=== PATIENT | male | born 1955 | race Caucasian/White ===

== ENCOUNTER 2023-12-17 11:07 | Emergency (ER) | payer MEDICARE, SELFPAY ==
--- NOTE | 2023-12-17 11:33 | ED.URI ---
HPI - URI/Sore Throat General Chief Complaint: Upper Respiratory Infection Stated Complaint: flu-like symptoms Time Seen by Provider: 12/17/23 11:33 Source: patient and RN notes reviewed Mode of arrival: ambulatory Limitations: no limitations History of Present Illness HPI Narrative: 68-year-old male presents with concern for 6 day history of cough, chest congestion, sinus congestion, headache, pain behind his eyes, body aches, shortness of breath. He reports he has been taking Tylenol. He reports history of heavy smoking. He reports cold air makes him feel short of breath MD elicited complaint: cough Related Data Allergies Allergy/AdvReac Type Severity Reaction Status Date / Time No Known Allergies Allergy Verified 12/17/23 13:23 Review of Systems Review of Systems: CONSTITUTIONAL: Reports malaise, chills, sweats EYES: Denies visual changes, redness, or discharge. ENT: Reports rhinorrhea, congestion, sinus pain. Denies otalgia and sore throat. CARDIOVASCULAR: Denies chest pain, palpitations, or edema. RESPIRATORY: Reports cough, chest congestion, dyspnea. GASTROINTESTINAL: Denies abdominal pain, nausea, vomiting, diarrhea SKIN: Denies rash or itching. MUSCULOSKELETAL: Reports myalgia. NEUROLOGIC: Reports headache. All systems reviewed & are unremarkable except as noted in HPI and below PMFSH Comments At time of signature, agree with nursing past medical, surgical, social and family history. There is no relevant family history pertinent to the presenting complaint Exam Narrative: GENERAL: Nontoxic-appearing, well-nourished, and in no acute distress. HEAD: Normocephalic EYES: PERRLA, conjunctivae clear ENT: Nares clear. Mucous membranes moist. TM pearly villanueva with dull light reflex bilaterally; no tragal tenderness. Oropharynx not erythematous without lesions. Tonsils not enlarged and without exudate, no drooling, no hoarseness, no trismus, uvula midline. NECK: Supple. No lymphadenopathy CHEST: Scattered rhonchi, otherwise clear to auscultation, breath sounds equal. No wheezing, rales, or stridor. No respiratory distress, speaks in full sentences. HEART: Regular rate and rhythm. No murmur heard. SKIN: Warm, dry, no rash. NEURO: Alert and oriented x3. PSYCH: Normal mood and affect Course Course Emergency Course: Patient is aware of diagnosis, understands and agrees to treatment plan. Anticipatory guidance given. Patient agrees to follow-up as directed and is aware of reasons to seek care at the emergency department. Portions of this record may have been created with voice recognition software Level of Care: Express Care Visit Vital Signs Vital signs: Reviewed. MDM - URI/Sore Throat MDM Narrative Medical decision making narrative: Differential diagnosis considered: Bryan virus, strep pharyngitis, allergic rhinitis, upper respiratory tract infection, sinusitis, rhinosinusitis, nasopharyngitis. viral pharyngitis, otitis media, otitis externa, pneumonia, bronchitis, viral cough syndrome, viral syndrome, and influenza. Exam findings show no acute concerns or changes; patient is non-toxic appearing and is in no distress. Patient is appropriate for outpatient treatment and follow-up. Lab Data Attestation: I reviewed the patient's lab results. Critical Care Time Critical Care Time Critical Care Time: No Discharge Plan Discharge Clinical Impression: Upper respiratory infection with cough and congestion Patient Disposition: Home, Self-Care Condition: Stable Instructions: Antibiotic Form, Acute Cough (ED) Additional Instructions: Your COVID and flu tests are negative Take medication as prescribed Recommend antihistamine such as Benadryl at night time and Zyrtec or Danette during the day Use inhaler as needed for cough, wheezing, shortness of breath or chest tightness. Also, recommend symptomatic treatment includes: rest, fluids, and increase humidity of the air at home. Recommend Acetamin
[2023-12-17 12:58] VITALS: BP 153/88; PULSE 84; RESP 18; TEMP 37.2; O2SAT 93
== END 2023-12-17 13:33 | disposition home or self-care (01) ==
PROVIDERS: Emergency Provider Nurse Practitioner; PCP Nurse Practitioner Family
DX: J06.9 Acute upper respiratory infection, unspecified (principal); R05.9 Cough, unspecified
CPT/HCPCS: 87426; 87804; 99213; G0463

== ENCOUNTER 2023-12-20 15:47 | Inpatient (IN) | payer MEDICARE, SELFPAY ==
[2023-12-20] VITALS (10 sets, daily range): BP systolic 134–168; BP diastolic 66–80; PULSE 58–96; RESP 14–20; TEMP 36.6–38.4; O2SAT 87–94; BMI 21.4
--- NOTE | ~2023-12-20 | XR_ITS ---
EXAMINATION: XR chest 2V DATE: 12/20/2023 16:15 INDICATION: Shortness of breath, cough and fever TECHNIQUE: frontal and lateral views of the chest were obtained. COMPARISON: None FINDINGS: There are interstitial and patchy airspace opacities in the bilateral mid and lower lung zones. Tiny bilateral pleural effusions. No pneumothorax. The cardiomediastinal silhouette is normal. Mild thorac ic spondylosis. IMPRESSION: 1. Opacities in bilateral mid and lower lung zones and favor pneumonia over atelectasis or pulmonary edema. Reviewed, dictated and finalized at location A. HIC DESIGN TEACHER IMPRESSION: 1. Opacities in bilateral mid and lower lung zones and favor pneumonia over ate lectasis or pulmonary edema.
--- NOTE | ~2023-12-20 | US_ITS ---
EXAMINATION: US abdomen limited DATE: 12/23/2023 17:04 INDICATION: elevated liver enzymes TECHNIQUE: Multiple grayscale and Doppler ultrasound images of limited portions of the abdomen were o btained. COMPARISON: [facility] 12/20/2023. FINDINGS: The visualized portions of the pancreas are normal. The liver is normal with normal echogen icity and echotexture. Liver surface nodularity. Normal hepatopetal flow in the main portal vein. The gallbladder is partially collapsed which limits evaluation. Borderline gallbladder wall thickening. The common bile duct measures 2 mm. There was no sonographic Werner sign. The right kidney measures 1 0.5 x 6.0 x 7.4. 3.9 cm simple upper pole cyst. No hydronephrosis IMPRESSION: Nodular liver border as can be seen with cirrhosis. Incompletely evaluated, collapsed gallbladder with nonspecific wall thickening. Reviewed, dictated and finalized at location K. [employer]
--- NOTE | ~2023-12-20 | CT_ITS ---
EXAMINATION: CTA chest PE protocol DATE: 12/20/2023 18:21 INDICATION: Dyspnea, fever and chills TECHNIQUE: Computed tomography (CT) pulmonary angiogram of the chest was performed with 100 mL Omnipa que-350 intravenous contrast. Additional 3D reconstructions utilizing coronal maximum intensity proje ction (MIP) were performed. Automated exposure control and iterative reconstruction technique were em ployed. The dose-length product was 241.63 mGy-cm. COMPARISON: None FINDINGS: No pulmonary embolism. There is dependent consolidation in the posterior aspect of the bilateral uppe r lobes along the major fissures. There are diffuse tree-in-bud opacities and some patchy groundglass opacities in the bilateral lower lungs. No pulmonary edema, pleural effusion or pneumothorax. Heart size is normal. Atherosclerotic coronary artery calcifications. No pericardial effusion. Thoracic aor ta is normal in caliber with no dissection. Calcified right hilar and mediastinal lymph nodes along w ith multiple tiny scattered hepatic and splenic calcifications consistent with old granulomatous dise ase. No pathologically enlarged thoracic lymphadenopathy. 4.3 cm cyst at the upper pole of the right kidney. Moderate thoracic and severe lower cervical spondylosis. IMPRESSION: 1. No pulmonary embolism. 2. Bilateral diffuse multifocal pneumonia. Reviewed, dictated and finalized at location A. [employer]
[2023-12-20] MEDS: ACETAMINOPHEN 500 MG TABLET 1000 MG PO (16:16)
[2023-12-20] MEDS: ALBUTEROL SULFATE NEB 2.5 MG/3 ML INH 15 MG INHALATION (16:41)
[2023-12-20] MEDS: predniSONE 20 MG TABLET 40 MG PO (17:08)
[2023-12-20 17:11] LABS: Influenza A QL RT-PCR Positive (Negative); Influenza B QL RT-PCR Negative (Negative); RSV RNA, RT-PCR Negative (Negative); SARS-CoV-2 RNA PCR Negative (Negative)
[2023-12-20 17:21] LABS: Basophils Absolute Auto 0.1 K/mm3 (0.0-0.1); Basophils Percent Auto 0.3 % (0.2-1.2); Hematocrit 43.8 % (42.0-52.0); Hemoglobin 15.1 g/dL (14.0-18.0); Immature Granulocyte Absolute 0.15 K/mm3 (0.00-0.031); Lymphocytes Absolute Auto 1.55 K/mm3 (0.9-3.2); Lymphocytes Percent Auto 9.8 % (18.3-44.2); Mean Corpuscular HGB Conc 34.5 g/dl (32-36); Mean Corpuscular Volume 95.8 fl (80-100); Mean Platelet Volume 9.7 fl (7.4-10.4); Monocytes Absolute Auto 1.3 K/mm3 (0.1-0.6); Neutrophils Absolute Auto 12.7 K/mm3 (1.3-6.7); Neutrophils Percent Auto 80.9 % (45.5-73.1); Platelet Count Result 108 k/mm3 (150-375); Red Blood Count 4.57 M/mm3 (4.6-6.20); Red Cell Distribution Width 14.6 % (11.5-14.5); White Blood Count 15.8 K/mm3 (4.5-10.0)
[2023-12-20 17:32] LABS: INR 1.1; Partial Thromboplastin Time 28.1 SECONDS (22.3-36.8); Prothrombin Time 14.5 Seconds (11.1-14.7)
[2023-12-20 17:38] LABS: Alanine Aminotransferase 46 U/L (6-50); Albumin Level 2.9 g/dL (3.5-5.1); Alkaline Phosphatase 170 U/L (38-126); Anion Gap 2 mmol/L (8-16); Aspartate Amino Transferase 69 U/L (17-59); Bilirubin,Total 1.1 mg/dL (0.2-1.3); Blood Urea Nitrogen 16 mg/dL (9-20); Calcium 8.1 mg/dL (8.4-10.2); Carbon Dioxide 28 mmol/L (22-30); Chloride 98 mmol/L (98-107); Estimated CRCL calculation 68 ml/min; Estimated Glomerular Filt Rate > 60; Glucose 101 mg/dL (65-110); Potassium 4.5 mmol/L (3.4-5.0); Sodium 128 mmol/L (137-145)
[2023-12-20 17:41] LABS: D Dimer 2.53 ug/mL (<0.48)
[2023-12-20 18:01] LABS: Appearance Urine Clear (Clear); Bacteria Urine None Seen /hpf; Bilirubin Urine Negative (Negative); Blood Urine Negative (Negative); Color Urine Yellow (Yellow); Glucose Urine UA Negative (Negative); Ketones Urine Negative (Negative); Leukocyte Esterase Ur Negative LEU/UL (Negative); Nitrate Urine Negative (Negative); Non Pathogenic Casts 0-2; Protein Urine 1+ mg/dL (Negative); RBC Urine 0-2 /hpf (0-2); Squamous Epithelial Cell Urine None seen /hpf (Few); WBC Urine 0-5 /hpf
[2023-12-20 18:04] LABS: Add Urine Microscopic? YES
[2023-12-20 18:06] LABS: Lactic Acid Reflex 1.7 mmol/L (0.7-2.0)
[2023-12-20] MEDS: DOXYCYCLINE HYCLATE 100 MG TABLET PO (18:22)
--- NOTE | 2023-12-20 18:27 | ED.FEVER ---
HPI - Fever General Chief Complaint: Fever Stated Complaint: weakness Time Seen by Provider: 12/20/23 16:02 History of Present Illness HPI Narrative: patient states that 9 days ago he started having URI symptoms, his also had this, however his got better and he got worse. He is having more cough, fevers, difficulty breathing. Related Data Allergies Allergy/AdvReac Type Severity Reaction Status Date / Time No Known Allergies Allergy Verified 12/20/23 15:48 Review of Systems Review of Systems: All systems reviewed & are unremarkable except as noted in HPI and below Exam Narrative: EXAMINATION OF ORGAN SYSTEMS/BODY AREAS: Constitutional: Vital signs per nursing GENERAL:[No acute distress, non-toxic appearing.] HEAD: Normal with no signs of head trauma. EYES: EOMI, conjunctiva normal ENT: Hearing grossly intact LUNGS: Nonlabored breathing. Rales and wheezing bilateral his lungs HEART: [Regular rate and rhythm] ABD: [Soft], [nontender to palpation] EXT: Normal range of motion SKIN: [No rashes or lesions.] NEURO: [Alert and oriented x 3. No gross focal sensory or strength deficits.] PSYCH: Normal affect Course Vital Signs Vital signs: Vital Signs Temperature 101.2 F H 12/20/23 15:54 Pulse Rate 72 12/20/23 15:54 Respiratory Rate 20 12/20/23 15:54 Blood Pressure 162/66 H 12/20/23 15:54 Pulse Oximetry 94 12/20/23 15:54 Oxygen Delivery Room Air 12/20/23 15:54 Temperature 101.2 F H 12/20/23 15:54 Pulse Rate 82 12/20/23 18:43 Respiratory Rate 18 12/20/23 18:43 Blood Pressure 155/75 H 12/20/23 17:51 Pulse Oximetry 91 12/20/23 18:43 Oxygen Delivery Nasal Cannula 12/20/23 17:53 Oxygen Flow Rate 2 12/20/23 17:53 MDM - Fever MDM Narrative Medical decision making narrative: 60-year-old male presenting with URI symptoms have been worsening over the last 9 days, he is febrile here, with crackles and wheezing, he was started on DuoNebs, I suspect possible COPD exacerbation from URI versus possible pneumonia, chest x-ray does show bilateral pneumonia, and labs consistent with likely bacterial infection given leukocytosis, elevated CRP. D-dimer is elevated so I will obtain a CT PE. This shows MFC. I will start broad spectrum abx and admit patient. D/w family/patient regarding plan. D/w hospitalist. He is started on O2 at this time. Lab Data 12/20/23 16:57 12/20/23 16:57 Labs: Lab Results 12/20/23 12/20/23 12/20/23 Range/Units 16:27 16:57 16:57 WBC 15.8 H (4.5-10.0) K/mm3 RBC 4.57 L (4.6-6.20) M/mm3 Hgb 15.1 (14.0-18.0) g/dL Hct 43.8 (42.0-52.0) % MCV 95.8 (80-100) fl MCH 33.0 (26-34) pg MCHC 34.5 (32-36) g/dl RDW 14.6 H (11.5-14.5) % Plt Count 108 L (150-375) k/mm3 MPV 9.7 (7.4-10.4) fl Immature Gran % (Auto) 1.0 H (0-0.5) % Neut % (Auto) 80.9 H (45.5-73.1) % Lymph % (Auto) 9.8 L (18.3-44.2) % [place] % (Auto) 8.0 (2.6-8.5) % Eos % (Auto) 0.0 (0-4.4) % Baso % (Auto) 0.3 (0.2-1.2) % Lymph # (Auto) 1.55 (0.9-3.2) K/mm3 [place] # (Auto) 1.3 H (0.1-0.6) K/mm3 Eos # (Auto) 0.0 (0-0.3) K/mm3 Baso # (Auto) 0.1 (0.0-0.1) K/mm3 Abs Immat Gran (auto) 0.15 H (0.00-0.031) K/mm3 Absolute Neuts (auto) 12.7 H (1.3-6.7) K/mm3 Absolute Nucleated RBC 0.0 (0.0-0.012) K/mm3 Nucleated RBC % 0.0 (0.0-0.2) % PT 14.5 (11.1-14.7) Seconds INR 1.1 APTT 28.1 (22.3-36.8) SECONDS D-Dimer 2.53 H Cancelled (<0.48) ug/mL Sodium 128 L (137-145) mmol/L Potassium 4.5 (3.4-5.0) mmol/L Chloride 98 (98-107) mmol/L Carbon Dioxide 28 (22-30) mmol/L Anion Gap 2 L (8-16) mmol/L BUN 16 (9-20) mg/dL Creatinine 0.80 (0.7-1.3) mg/dL Estim Creat Clear Calc 68 ml/min Estimated GFR > 60 (59 - ) Glucose 101 (65-110) mg/dL Lactic Acid (0.7-2.0) mmol/L Calcium 8.1 L (8.4-10.2)
[2023-12-20] MEDS: VANCOMYCIN 1,500 MG/NS 500 ML 1,500 MG/500 ML BAG 250 MG IVPB (18:52)
[2023-12-20 20:01] LABS: MRSA (PCR) NOT DETECTED (NOT DETECTE)
--- NOTE | 2023-12-20 20:30 | PM.IMHP ---
H&P: HPI History of Present Illness Date/Time: 12/20/23 20:30 Chief Complaint: Fever, chills, weakness Narrative: 68-year-old male with past medical history of chronic tobacco use who presented to the ER for shortness of breath, cough, shortness of breath and chills for the last 16 days. The patient reports the symptoms initially started about 16 8 ago with nausea vomiting and loose stools. His GI symptoms did improve but then he began having chest tightness and cough as well as significant chills. He did not check a temperature at home but had a fever of 101.2 on arrival to the ER. He went to urgent care last week and had viral swab performed which were negative. He was given scripts for azithromycin and albuterol. The albuterol inhaler would help in for a couple of minutes but then his symptoms would return to baseline. He had been taking Tylenol as needed for aches and pains. He did report a severe headache that had been intermittent since onset of symptoms. His headache is now resolved after receiving Tylenol, Rocephin and doxycycline in the ER. He also received 1 dose of prednisone. With 1 time inhaler of albuterol and Atrovent patient reports significant improvement in his chest tightness and shortness of breath. He reports that his cough for the most part has been nonproductive. He reports he has been having palpitations any time he exerts himself any associate this with the shortness of breath. In the ER the patient had normal heart rate. His blood pressures were moderately elevated. He reports that he has not seen a primary care physician in many years. The last time he saw a physician was to have a arthroscopic knee surgery about 20 years ago. He does report that he has had some weight loss over the last couple of years. He lost moderate amount of weight after he had COVID 2 years ago but then his weight stabilized into last couple of weeks. Since he has been ill his appetite has decreased significantly. Review of Systems Review of Systems: 12 systems were reviewed with pertinent positives and negatives per HPI. Except as documented in the HPI, all other systems were reviewed and are negative. [facility] Past Medical History Medical History (Updated 12/20/23 @ 23:32 by Abi Pedroza DO) Continuous tobacco abuse Surgical History Surgical History (Updated 12/20/23 @ 23:32 by Abi Pedroza DO) Fracture of right clavicle with malunion History of arthroscopy of right knee Family History Family History (Updated 12/20/23 @ 23:35 by Abi Pedroza DO) Other Unknown family medical history Social History Social History (Updated 12/20/23 @ 23:35 by Abi Pedroza DO) Social History: Patient lives with his significant other Denisa. They have been together for 25 years. He has 2 adult sons who are healthy. He still works part-time as a beatty. He drinks about a 12 pack of beer a week. He has smoked 1.5 packs of cigarettes per day since he was a preteen. He states that he quit smoking December 03, 2023. He denies illicit substance use. Code status: Full code Surrogate decision maker: Denisa Tim (significant other) Smoking packs per day: 1.5 Smoking cigarettes per day: 30.0 Years smoked: 55 Smoking pack-years: 82.50 Smoking status: Former smoker Alcohol intake: current Drinks per week: 12 Substance use: current Substance use type: marijuana Do You Feel Safe in your Home?: Yes Lack of Transportation: No Lack of Food: Never True Current Housing: I Have Housing Concerned About Future Housing: YES Difficulty Paying Gas/Electric Bills: No Difficulty Paying for Meds: No Currently Unemployed: No Education: Associate Degree Difficulty w/ Childcare or Family Care: No Spiritual care concerns: No Comments Patient reports that his father when he was an infant. His mother when he was about 6 years old. He does not know their cause
[2023-12-20] MEDS: AZITHROMYCIN 500 MG/NS 250 ML 500 MG/250 ML BAG 250 MG IVPB (23:09)
[2023-12-21] VITALS (12 sets, daily range): BP systolic 141–159; BP diastolic 65–77; PULSE 51–75; RESP 18–20; TEMP 36.4–37.2; O2SAT 92–97
--- NOTE | 2023-12-21 | ECG_ITS ---
Measurements Intervals [place] Rate: 53 P: 87 SC: 160 QRS: 90 QRSD: 129 T: 78 QT: 471 QTc: 446 Interpretive Statements SINUS BRADYCARDIA NONSPECIFIC iNTRAVENTRICULAR CONDUCTION DELAY [110+ ms QRS DURATION] BORDERLINE ECG COMPARED TO ECG 12/21/2023 02:29:08 NO SIGNIFICANT DIFFERENCE Electronically Signed On 12-21-2023 7:15:48 GRAIN SACKER by Wilmer Mar M.D.
--- NOTE | 2023-12-21 02:29 | ECG_ITS ---
Measurements Intervals [place] Rate: 54 P: 89 CT: 159 QRS: 91 QRSD: 130 T: 78 QT: 468 QTc: 445 Interpretive Statements SINUS BRADYCARDIA RIGHTWARD AXIS BORDERLINE ECG NO PREVIOUS ECG AVAILABLE FOR COMPARISON Electronically Signed On 12-21-2023 13:48:26 SECURITIES SALES ASSOCIATE by Wilmer Mar M.D.
[2023-12-21] MEDS: IPRATROPIUM 0.5 MG/ALBUTEROL SULFATE 2.5 MG AMPUL.NEB 3 ML INHALATION ×4 (02:35→20:10)
[2023-12-21 04:35] LABS: Basophils Percent Auto 0.2 % (0.2-1.2); Hematocrit 41.3 % (42.0-52.0); Hemoglobin 14.3 g/dL (14.0-18.0); Immature Granulocyte Absolute 0.13 K/mm3 (0.00-0.031); Immature Granulocyte Percent A 0.9 % (0-0.5); Immature Platelet Fraction Pct 2.6 % (0.9-11.2); Lymphocytes Absolute Auto 1.41 K/mm3 (0.9-3.2); Lymphocytes Percent Auto 9.8 % (18.3-44.2); Mean Corpuscular HGB Conc 34.6 g/dl (32-36); Mean Corpuscular Hemoglobin 33.4 pg (26-34); Mean Corpuscular Volume 96.5 fl (80-100); Mean Platelet Volume 9.5 fl (7.4-10.4); Monocytes Absolute Auto 1.1 K/mm3 (0.1-0.6); Monocytes Percent Auto 7.7 % (2.6-8.5); Neutrophils Absolute Auto 11.8 K/mm3 (1.3-6.7); Neutrophils Percent Auto 81.4 % (45.5-73.1); Platelet Count Result 99 k/mm3 (150-375); Red Blood Count 4.28 M/mm3 (4.6-6.20); Red Cell Distribution Width 14.9 % (11.5-14.5); White Blood Count 14.5 K/mm3 (4.5-10.0)
[2023-12-21 04:48] LABS: Anion Gap 3 mmol/L (8-16); Blood Urea Nitrogen 18 mg/dL (9-20); Calcium 7.9 mg/dL (8.4-10.2); Carbon Dioxide 29 mmol/L (22-30); Chloride 103 mmol/L (98-107); Estimated CRCL calculation 79 ml/min; Estimated Glomerular Filt Rate > 60; Glucose 133 mg/dL (65-110); Potassium 4.3 mmol/L (3.4-5.0); Sodium 135 mmol/L (137-145)
--- NOTE | 2023-12-21 14:06 | PM.IMPN ---
Progress Note: A&P Assessment and Plan (1) Multifocal pneumonia: Code(s): J18.9 - Pneumonia, unspecified organism Status: Acute Assessment and Plan: CXR showed opacities in bilateral mid and lower lung zones and favor pneumonia over atelectasis or pulmonary edema. CT showed bilateral diffuse multifocal pneumonia. Likely secondary bacterial pneumonia complicating will was initially primary influenza A. continue Rocephin and azithromycin MRSA cultures negative, d/c vancomycin. Blood cultures pending. (2) Acute hypoxemic respiratory failure: Code(s): J96.01 - Acute respiratory failure with hypoxia Status: Acute Assessment and Plan: scheduled nebulizer treatments incentive spirometry see above (3) Influenza: Code(s): J11.1 - Influenza due to unidentified influenza virus with other respiratory manifestations Status: Acute Assessment and Plan: positive on respiratory panel (4) Continuous tobacco abuse: Code(s): Z72.0 - Tobacco use Status: Chronic Assessment and Plan: nicotine patch deferred smoking cessation (5) Weight loss, unintentional: Code(s): R63.4 - Abnormal weight loss Status: Acute Assessment and Plan: possibly secondary to acute illness TSH normal. Patient would benefit from routine cancer screening such a Cologuard/colonoscopy and yearly evaluation for lung cancer screening Plan Subjective Date/time seen: 12/21/23 14:06 Interval history: Patient is in no acute distress, he is on room air. He reports feeling SOB, but improved from prior to admission. Will continue AB therapy for pneumonia, but likely secondary to flu. BC pending. Will continue to monitor response. Review of Systems Review of Systems: All systems reviewed & are unremarkable except as noted in HPI and below Exam Narrative: GENERAL: Thin. No acute distress, non-toxic appearing. HEAD: atraumatic EYES: EOMI, PERRLA ENT: Dry mucous membranes LUNGS: Lung sounds clear to auscultation, bilateral wheezes HEART: RRR ABD: Soft, nontender to palpation EXT: Normal range of motion, no edema SKIN: No rashes or lesions NEURO: A&O x 3. No gross focal deficits. PSYCH: Normal affect. Pleasant and appropriate. Objective Data Vital Signs Vital Signs: Vital Signs - 24 hr 12/20/23 15:54 12/20/23 16:17 12/20/23 16:40 Temperature 101.2 F H Pulse Rate 72 75 61 Respiratory Rate 20 18 14 Blood Pressure 162/66 H 160/71 H Pulse Oximetry 94 94 Oxygen Delivery Room Air Oxygen Flow Rate Fraction of Inspired Oxygen 12/20/23 17:18 12/20/23 17:51 12/20/23 17:53 Temperature Pulse Rate 84 96 Respiratory Rate 16 20 Blood Pressure 155/75 H Pulse Oximetry 87 L 90 Oxygen Delivery Nasal Cannula Oxygen Flow Rate 2 Fraction of Inspired Oxygen 12/20/23 18:43 12/20/23 20:17 12/20/23 22:45 Temperature 97.9 F Pulse Rate 82 66 58 L Respiratory Rate 18 15 18 Blood Pressure 134/74 168/80 H Pulse Oximetry 91 94 94 Oxygen Delivery Oxygen Flow Rate Fraction of Inspired Oxygen 12/20/23 23:18 12/21/23 05:06 12/21/23 02:35 Temperature 97.6 F Pulse Rate 51 L 55 L Respiratory Rate 18 18 Blood Pressure 141/65 H Pulse Oximetry 94 94 Oxygen Delivery Room Air Oxygen Flow Rate Fraction of Inspired Oxygen 12/21/23 02:30 12/21/23 07:30 12/21/23 07:30 Temperature Pulse Rate 56 L Respiratory Rate 18 Blood Pressure Pulse Oximetry 94 94 Oxygen Delivery Room Air Room Air Oxygen Flow Rate Fraction of Inspired Oxygen 21 12/21/23 07:37 12/21/23 08:36 12/21/23 13:35 Temperature Pulse Rate 60 73 Respiratory Rate 18 18 Blood Pressure Pulse Oximetry 92 Oxygen Delivery Room Air Oxygen Flow Rate Fraction of Inspired Oxygen 12/21/23 13:43 Temperature Pulse Rate 75 Respiratory Rate 18 Blood Pressure Pulse Oximetry Oxygen Delive
[2023-12-21] MEDS: ACETAMINOPHEN 325 MG TABLET 650 MG PO (17:14)
[2023-12-21] MEDS: AZITHROMYCIN 500 MG/NS 250 ML 500 MG/250 ML BAG 250 MG IVPB (20:09)
[2023-12-21] MEDS: FLUTICASONE PROPIONATE 0.05% NA SPR 16 GM BTL (*BKC) 1 SPRAY NASAL (21:34)
[2023-12-22] VITALS (11 sets, daily range): BP systolic 123–155; BP diastolic 68–78; PULSE 56–78; RESP 18–20; TEMP 36.4–36.7; O2SAT 97–98
[2023-12-22] MEDS: IPRATROPIUM 0.5 MG/ALBUTEROL SULFATE 2.5 MG AMPUL.NEB 3 ML INHALATION ×4 (02:05→20:34)
[2023-12-22 06:08] LABS: Basophils Percent Auto 0.4 % (0.2-1.2); Eosinophils Percent Auto 0.6 % (0-4.4); Hemoglobin 15.6 g/dL (14.0-18.0); Immature Granulocyte Absolute 0.06 K/mm3 (0.00-0.031); Immature Granulocyte Percent A 0.9 % (0-0.5); Immature Platelet Fraction Pct 2.4 % (0.9-11.2); Lymphocytes Absolute Auto 1.51 K/mm3 (0.9-3.2); Lymphocytes Percent Auto 21.8 % (18.3-44.2); Mean Corpuscular HGB Conc 33.9 g/dl (32-36); Mean Corpuscular Hemoglobin 33.3 pg (26-34); Mean Corpuscular Volume 98.3 fl (80-100); Mean Platelet Volume 9.8 fl (7.4-10.4); Monocytes Absolute Auto 0.5 K/mm3 (0.1-0.6); Monocytes Percent Auto 6.9 % (2.6-8.5); Neutrophils Absolute Auto 4.8 K/mm3 (1.3-6.7); Neutrophils Percent Auto 69.4 % (45.5-73.1); Platelet Count Result 108 k/mm3 (150-375); Red Blood Count 4.68 M/mm3 (4.6-6.20); Red Cell Distribution Width 14.8 % (11.5-14.5); White Blood Count 6.9 K/mm3 (4.5-10.0)
[2023-12-22 06:22] LABS: Anion Gap 1 mmol/L (8-16); Blood Urea Nitrogen 18 mg/dL (9-20); Calcium 8.3 mg/dL (8.4-10.2); Carbon Dioxide 31 mmol/L (22-30); Chloride 102 mmol/L (98-107); Estimated CRCL calculation 62 ml/min; Estimated Glomerular Filt Rate > 60; Glucose 115 mg/dL (65-110); Potassium 4.4 mmol/L (3.4-5.0); Sodium 134 mmol/L (137-145)
--- NOTE | 2023-12-22 08:02 | P.PNIM_ITS ---
Progress Note: A&P Assessment and Plan (1) Sepsis: Code(s): A41.9 - Sepsis, unspecified organism Status: Acute Assessment and Plan: * Likely due to bacterial pneumonia * Meeting Sepsis criteria due to WBC 15.8, temp 101.2, CXR and CTA of chest showing multifocal pneumonia * Blood cultures obtained, currently showing no growth * Patient started on Azithromycin and Rocephin IV * No IVF were given according to EMR * Lactic acid 1.7 (2) Acute hypoxemic respiratory failure: Code(s): J96.01 - Acute respiratory failure with hypoxia Status: Acute Assessment and Plan: * continue scheduled nebulizer treatments * continue incentive spirometry * see above (3) Multifocal pneumonia: Code(s): J18.9 - Pneumonia, unspecified organism Status: Acute Assessment and Plan: * CXR showed opacities in bilateral mid and lower lung zones and favor pneumonia over atelectasis or pulmonary edema. * CT showed bilateral diffuse multifocal pneumonia. * Likely secondary bacterial pneumonia complicating will was initially primary influenza A. * continue Rocephin and azithromycin * MRSA cultures negative, d/c vancomycin on 12/21. * Blood cultures showing no growth on preliminary. (4) Influenza: Code(s): J11.1 - Influenza due to unidentified influenza virus with other respiratory manifestations Status: Acute Assessment and Plan: * positive on respiratory panel (5) D-dimer, elevated: Code(s): R79.89 - Other specified abnormal findings of blood chemistry Status: Acute Assessment and Plan: * D-dimer 2.53 * CTA of chest negative for PE (6) Weight loss, unintentional: Code(s): R63.4 - Abnormal weight loss Status: Acute Assessment and Plan: * possibly secondary to acute illness * TSH normal. * Patient would benefit from routine cancer screening such a Cologuard/colonoscopy and yearly evaluation for lung cancer screening (7) Continuous tobacco abuse: Code(s): Z72.0 - Tobacco use Status: Chronic Assessment and Plan: * nicotine patch deferred * smoking cessation (8) Constipation: Code(s): K59.00 - Constipation, unspecified Status: Acute Assessment and Plan: * Started MiraLax today as patient states he has not had a bowel movement in 7 days * Colace ordered scheduled, bisacodyl oral, and bisacodyl suppository ordered p.r.n. Plan Time Spent With Patient Time with patient: 25 - 35 minutes Subjective Date/time seen: 12/22/23 08:02 Interval history: This is a 68 year old male who presented to the hospital on 12/20/23 with acute hypoxic respiratory failure. He was reporting cough, shortness of breath, fever and chills. Work up in the hospital included Chest x-ray that shown pneumonia, Chest CTA which was negative for PE and shown bilateral diffuse multifocal pneumonia. Patient initially meeting sepsis criteria with temp of 101.2, WBC 15.8, and known source of pneumonia. On examination today patient is alert oriented x3, sitting in the chair. VSS, he is afebrile, currently on room air. Labs today revealed WBC now down to 6.9, platelet count 108, Na+ 134, Ca+ 8.3. Patient currently on Azithromycin and Rocephin. He denies any fever, chills, headache, nausea, vomiting, diarrhea, abdominal pain, chest pain. He endorses shortness of breath with exertion and trouble hearing due to perforated eardrums. He states that he which shown to have perforated his eardrums when he had COVID recently and has not recovered from that. is
--- NOTE | 2023-12-22 08:02 | PM.IMPN ---
Progress Note: A&P Assessment and Plan (1) Sepsis: Code(s): A41.9 - Sepsis, unspecified organism Status: Acute Assessment and Plan: Likely due to bacterial pneumonia Meeting Sepsis criteria due to WBC 15.8, temp 101.2, CXR and CTA of chest showing multifocal pneumonia Blood cultures obtained, currently showing no growth Patient started on Azithromycin and Rocephin IV No IVF were given according to EMR Lactic acid 1.7 (2) Acute hypoxemic respiratory failure: Code(s): J96.01 - Acute respiratory failure with hypoxia Status: Acute Assessment and Plan: continue scheduled nebulizer treatments continue incentive spirometry see above (3) Multifocal pneumonia: Code(s): J18.9 - Pneumonia, unspecified organism Status: Acute Assessment and Plan: CXR showed opacities in bilateral mid and lower lung zones and favor pneumonia over atelectasis or pulmonary edema. CT showed bilateral diffuse multifocal pneumonia. Likely secondary bacterial pneumonia complicating will was initially primary influenza A. continue Rocephin and azithromycin MRSA cultures negative, d/c vancomycin on 12/21. Blood cultures showing no growth on preliminary. (4) Influenza: Code(s): J11.1 - Influenza due to unidentified influenza virus with other respiratory manifestations Status: Acute Assessment and Plan: positive on respiratory panel (5) D-dimer, elevated: Code(s): R79.89 - Other specified abnormal findings of blood chemistry Status: Acute Assessment and Plan: D-dimer 2.53 CTA of chest negative for PE (6) Weight loss, unintentional: Code(s): R63.4 - Abnormal weight loss Status: Acute Assessment and Plan: possibly secondary to acute illness TSH normal. Patient would benefit from routine cancer screening such a Cologuard/colonoscopy and yearly evaluation for lung cancer screening (7) Continuous tobacco abuse: Code(s): Z72.0 - Tobacco use Status: Chronic Assessment and Plan: nicotine patch deferred smoking cessation (8) Constipation: Code(s): K59.00 - Constipation, unspecified Status: Acute Assessment and Plan: Started MiraLax today as patient states he has not had a bowel movement in 7 days Colace ordered scheduled, bisacodyl oral, and bisacodyl suppository ordered p.r.n. Plan Time Spent With Patient Time with patient: 25 - 35 minutes Subjective Date/time seen: 12/22/23 08:02 Interval history: This is a 68 year old male who presented to the hospital on 12/20/23 with acute hypoxic respiratory failure. He was reporting cough, shortness of breath, fever and chills. Work up in the hospital included Chest x-ray that shown pneumonia, Chest CTA which was negative for PE and shown bilateral diffuse multifocal pneumonia. Patient initially meeting sepsis criteria with temp of 101.2, WBC 15.8, and known source of pneumonia. On examination today patient is alert oriented x3, sitting in the chair. VSS, he is afebrile, currently on room air. Labs today revealed WBC now down to 6.9, platelet count 108, Na+ 134, Ca+ 8.3. Patient currently on Azithromycin and Rocephin. He denies any fever, chills, headache, nausea, vomiting, diarrhea, abdominal pain, chest pain. He endorses shortness of breath with exertion and trouble hearing due to perforated eardrums. He states that he which shown to have perforated his eardrums when he had COVID recently and has not recovered from that. is at home and has influenza. Review of Systems Review of Systems: All systems reviewed & are unremarkable except as noted in HPI and below Constitutional: Constitutional: Reports as per HPI and Reports no additional constitutional complaints Eyes: Eyes: Reports as per HPI and Reports no additional eye complaints ENT: Reports system reviewed and no additional complaints, except as documented and Reports as p
[2023-12-22] MEDS: FLUTICASONE PROPIONATE 0.05% NA SPR 16 GM BTL (*BKC) 1 SPRAY NASAL ×2 (09:07→21:03)
[2023-12-22] MEDS: ACETAMINOPHEN 325 MG TABLET 650 MG PO (16:07)
[2023-12-22] MEDS: AZITHROMYCIN 500 MG/NS 250 ML 500 MG/250 ML BAG 250 MG IVPB (21:02)
[2023-12-23] VITALS (10 sets, daily range): BP systolic 155–163; BP diastolic 71–78; PULSE 56–80; RESP 18–20; TEMP 35.9–36.6; O2SAT 94–100
[2023-12-23 06:07] LABS: Basophils Percent Auto 0.4 % (0.2-1.2); Eosinophils Absolute Auto 0.1 K/mm3 (0-0.3); Eosinophils Percent Auto 1.6 % (0-4.4); Hematocrit 45.3 % (42.0-52.0); Hemoglobin 15.6 g/dL (14.0-18.0); Immature Granulocyte Absolute 0.05 K/mm3 (0.00-0.031); Immature Granulocyte Percent A 0.7 % (0-0.5); Immature Platelet Fraction Pct 2.4 % (0.9-11.2); Lymphocytes Absolute Auto 2.28 K/mm3 (0.9-3.2); Lymphocytes Percent Auto 33.6 % (18.3-44.2); Mean Corpuscular HGB Conc 34.4 g/dl (32-36); Mean Corpuscular Hemoglobin 33.4 pg (26-34); Mean Platelet Volume 9.8 fl (7.4-10.4); Monocytes Absolute Auto 0.7 K/mm3 (0.1-0.6); Neutrophils Absolute Auto 3.6 K/mm3 (1.3-6.7); Neutrophils Percent Auto 53.7 % (45.5-73.1); Platelet Count Result 134 k/mm3 (150-375); Red Blood Count 4.67 M/mm3 (4.6-6.20); Red Cell Distribution Width 14.6 % (11.5-14.5); White Blood Count 6.8 K/mm3 (4.5-10.0)
[2023-12-23 06:19] LABS: Alanine Aminotransferase 61 U/L (6-50); Albumin Level 2.8 g/dL (3.5-5.1); Alkaline Phosphatase 182 U/L (38-126); Anion Gap 5 mmol/L (8-16); Aspartate Amino Transferase 74 U/L (17-59); Bilirubin,Total 1.3 mg/dL (0.2-1.3); Blood Urea Nitrogen 15 mg/dL (9-20); Calcium 8.4 mg/dL (8.4-10.2); Carbon Dioxide 27 mmol/L (22-30); Chloride 102 mmol/L (98-107); Estimated CRCL calculation 70 ml/min; Estimated Glomerular Filt Rate > 60; Glucose 91 mg/dL (65-110); Potassium 4.7 mmol/L (3.4-5.0); Sodium 134 mmol/L (137-145)
[2023-12-23] MEDS: IPRATROPIUM 0.5 MG/ALBUTEROL SULFATE 2.5 MG AMPUL.NEB 3 ML INHALATION ×3 (07:29→20:18)
[2023-12-23] MEDS: FLUTICASONE PROPIONATE 0.05% NA SPR 16 GM BTL (*BKC) 1 SPRAY NASAL ×2 (08:51→20:58)
[2023-12-23] MEDS: ENOXAPARIN 40 MG/0.4 ML SYRINGE SUB-Q (10:40)
[2023-12-23 13:13] LABS: Hepatitis B Surface Antigen Negative (Negative)
[2023-12-23 13:19] LABS: HAV RESULT Negative (Negative); Hepatitis B Core IgM Result Negative (Negative)
[2023-12-23 13:32] LABS: Hepatitis C Virus Antibody Reactive (Negative)
--- NOTE | 2023-12-23 14:51 | P.PNIM_ITS ---
Progress Note: A&P Assessment and Plan (1) Sepsis: Code(s): A41.9 - Sepsis, unspecified organism Status: Ruled-out Assessment and Plan: * Likely due to bacterial pneumonia * Meeting Sepsis criteria due to WBC 15.8, temp 101.2, CXR and CTA of chest showing multifocal pneumonia * Blood cultures obtained, currently showing no growth * Transitioned to PO Augmentin, completed azithromycin course * No IVF were given according to EMR * Lactic acid 1.7 (2) Acute hypoxemic respiratory failure: Code(s): J96.01 - Acute respiratory failure with hypoxia Status: Acute Assessment and Plan: * continue scheduled nebulizer treatments * continue incentive spirometry * see above (3) Multifocal pneumonia: Code(s): J18.9 - Pneumonia, unspecified organism Status: Acute Assessment and Plan: * CXR showed opacities in bilateral mid and lower lung zones and favor pneumonia over atelectasis or pulmonary edema. * CT showed bilateral diffuse multifocal pneumonia. * Likely secondary bacterial pneumonia complicating will was initially primary influenza A. * transitioned to PO Augmentin * MRSA cultures negative, d/c vancomycin on 12/21. * Blood cultures showing no growth on preliminary. (4) Influenza: Code(s): J11.1 - Influenza due to unidentified influenza virus with other respiratory manifestations Status: Acute Assessment and Plan: * positive on respiratory panel (5) D-dimer, elevated: Code(s): R79.89 - Other specified abnormal findings of blood chemistry Status: Acute Assessment and Plan: * D-dimer 2.53 * CTA of chest negative for PE (6) Weight loss, unintentional: Code(s): R63.4 - Abnormal weight loss Status: Acute Assessment and Plan: * possibly secondary to acute illness * TSH normal. * Patient would benefit from routine cancer screening such a Cologuard/colonoscopy and yearly evaluation for lung cancer screening * AST/ALT elevated * hep panel positive for hepatitis C, unknown to patient - no history * PCR pending * AB US ordered (7) Continuous tobacco abuse: Code(s): Z72.0 - Tobacco use Status: Chronic Assessment and Plan: * nicotine patch deferred * smoking cessation (8) Constipation: Code(s): K59.00 - Constipation, unspecified Status: Acute Assessment and Plan: * Started MiraLax today as patient states he has not had a bowel movement in 7 days * Colace ordered scheduled, bisacodyl oral, and bisacodyl suppository ordered p.r.n. Plan Subjective Date/time seen: 12/23/23 14:51 Interval history: Review of Systems Review of Systems: All systems reviewed & are unremarkable except as noted in HPI and below Exam Narrative: General: In no acute distress, fairly nourished Head: atraumatic, no encephalopathy Eyes: EOMI, PERRLA ENT: moist mucous membranes Neck: supple Cardiac: RRR, Normal S1 and S2. Respiratory: Mild wheezing noted bilaterally Gastrointestinal: soft, non-distended, non-tender, normoactive bowel sounds. Extremities: moves all extremities well, no edema. Skin: clean, dry, intact. No wounds or lesions. Neuro: Alert and oriented x4, cranial nerves intact, no neuro deficits. Psych: normal mood, normal affect Objective Data Vital Signs Vital Signs: Vital Signs - 24 hr 12/22/23 15:30 12/22/23 19:32 12/22
--- NOTE | 2023-12-23 14:51 | PM.IMPN ---
Progress Note: A&P Assessment and Plan (1) Sepsis: Code(s): A41.9 - Sepsis, unspecified organism Status: Ruled-out Assessment and Plan: Likely due to bacterial pneumonia Meeting Sepsis criteria due to WBC 15.8, temp 101.2, CXR and CTA of chest showing multifocal pneumonia Blood cultures obtained, currently showing no growth Transitioned to PO Augmentin, completed azithromycin course No IVF were given according to EMR Lactic acid 1.7 (2) Acute hypoxemic respiratory failure: Code(s): J96.01 - Acute respiratory failure with hypoxia Status: Acute Assessment and Plan: continue scheduled nebulizer treatments continue incentive spirometry see above (3) Multifocal pneumonia: Code(s): J18.9 - Pneumonia, unspecified organism Status: Acute Assessment and Plan: CXR showed opacities in bilateral mid and lower lung zones and favor pneumonia over atelectasis or pulmonary edema. CT showed bilateral diffuse multifocal pneumonia. Likely secondary bacterial pneumonia complicating will was initially primary influenza A. transitioned to PO Augmentin MRSA cultures negative, d/c vancomycin on 12/21. Blood cultures showing no growth on preliminary. (4) Influenza: Code(s): J11.1 - Influenza due to unidentified influenza virus with other respiratory manifestations Status: Acute Assessment and Plan: positive on respiratory panel (5) D-dimer, elevated: Code(s): R79.89 - Other specified abnormal findings of blood chemistry Status: Acute Assessment and Plan: D-dimer 2.53 CTA of chest negative for PE (6) Weight loss, unintentional: Code(s): R63.4 - Abnormal weight loss Status: Acute Assessment and Plan: possibly secondary to acute illness TSH normal. Patient would benefit from routine cancer screening such a Cologuard/colonoscopy and yearly evaluation for lung cancer screening AST/ALT elevated hep panel positive for hepatitis C, unknown to patient - no history PCR pending AB US ordered (7) Continuous tobacco abuse: Code(s): Z72.0 - Tobacco use Status: Chronic Assessment and Plan: nicotine patch deferred smoking cessation (8) Constipation: Code(s): K59.00 - Constipation, unspecified Status: Acute Assessment and Plan: Started MiraLax today as patient states he has not had a bowel movement in 7 days Colace ordered scheduled, bisacodyl oral, and bisacodyl suppository ordered p.r.n. Plan Subjective Date/time seen: 12/23/23 14:51 Interval history: Review of Systems Review of Systems: All systems reviewed & are unremarkable except as noted in HPI and below Exam Narrative: General: In no acute distress, fairly nourished Head: atraumatic, no encephalopathy Eyes: EOMI, PERRLA ENT: moist mucous membranes Neck: supple Cardiac: RRR, Normal S1 and S2. Respiratory: Mild wheezing noted bilaterally Gastrointestinal: soft, non-distended, non-tender, normoactive bowel sounds. Extremities: moves all extremities well, no edema. Skin: clean, dry, intact. No wounds or lesions. Neuro: Alert and oriented x4, cranial nerves intact, no neuro deficits. Psych: normal mood, normal affect Objective Data Vital Signs Vital Signs: Vital Signs - 24 hr 12/22/23 15:30 12/22/23 19:32 12/22/23 20:00 Temperature 98.1 F 97.6 F Pulse Rate 74 56 L Respiratory Rate 20 20 Blood Pressure 155/77 H 150/78 H Pulse Oximetry 98 97 Oxygen Delivery Room Air 12/22/23 20:34 12/22/23 20:40 12/23/23 03:57 Temperature Pulse Rate 70 68 Respiratory Rate 18 18 Blood Pressure Pulse Oximetry 94 Oxygen Delivery Room Air 12/23/23 05:15 12/23/23 07:29 12/23/23 07:38 Temperature 97.9 F Pulse Rate 73 56 L 56 L Respiratory Rate 20 18 18 Blood Pressure 155/76 H Pulse Oximetry 96 95 Oxygen Delivery Room Air 12/23/23 07:38 12/23/23 08
[2023-12-23] MEDS: AMOXICILLIN/CLAVULANATE K 875-125 MG TAB 1 TABLET PO (20:58)
[2023-12-23] MEDS: ACETAMINOPHEN 325 MG TABLET 650 MG PO (20:58)
[2023-12-24] MEDS: IPRATROPIUM 0.5 MG/ALBUTEROL SULFATE 2.5 MG AMPUL.NEB 3 ML INHALATION ×3 (02:47→13:07)
[2023-12-24 02:48] VITALS: PULSE 63; RESP 18
[2023-12-24 04:55] LABS: Basophils Percent Auto 0.8 % (0.2-1.2); Eosinophils Absolute Auto 0.2 K/mm3 (0-0.3); Eosinophils Percent Auto 2.9 % (0-4.4); Hematocrit 45.5 % (42.0-52.0); Hemoglobin 15.4 g/dL (14.0-18.0); Immature Granulocyte Absolute 0.04 K/mm3 (0.00-0.031); Immature Granulocyte Percent A 0.8 % (0-0.5); Immature Platelet Fraction Pct 2.5 % (0.9-11.2); Lymphocytes Absolute Auto 2.08 K/mm3 (0.9-3.2); Lymphocytes Percent Auto 40.2 % (18.3-44.2); Mean Corpuscular HGB Conc 33.8 g/dl (32-36); Mean Corpuscular Volume 97.4 fl (80-100); Mean Platelet Volume 9.5 fl (7.4-10.4); Monocytes Absolute Auto 0.6 K/mm3 (0.1-0.6); Monocytes Percent Auto 12.2 % (2.6-8.5); Neutrophils Absolute Auto 2.2 K/mm3 (1.3-6.7); Neutrophils Percent Auto 43.1 % (45.5-73.1); Platelet Count Result 136 k/mm3 (150-375); Red Blood Count 4.67 M/mm3 (4.6-6.20); Red Cell Distribution Width 14.6 % (11.5-14.5); White Blood Count 5.2 K/mm3 (4.5-10.0)
[2023-12-24 05:21] LABS: Alanine Aminotransferase 61 U/L (6-50); Albumin Level 2.7 g/dL (3.5-5.1); Alkaline Phosphatase 229 U/L (38-126); Anion Gap 3 mmol/L (8-16); Aspartate Amino Transferase 73 U/L (17-59); Bilirubin,Total 0.9 mg/dL (0.2-1.3); Blood Urea Nitrogen 20 mg/dL (9-20); Carbon Dioxide 26 mmol/L (22-30); Chloride 105 mmol/L (98-107); Estimated CRCL calculation 62 ml/min; Estimated Glomerular Filt Rate > 60; Glucose 108 mg/dL (65-110); Potassium 4.2 mmol/L (3.4-5.0); Sodium 134 mmol/L (137-145)
[2023-12-24 05:37] VITALS: BP 159/81; PULSE 56; RESP 18; TEMP 36.2; O2SAT 98
[2023-12-24 07:10] VITALS: PULSE 57; RESP 18; O2SAT 98
[2023-12-24 07:20] VITALS: PULSE 60; RESP 18
[2023-12-24] MEDS: AMOXICILLIN/CLAVULANATE K 875-125 MG TAB 1 TABLET PO (09:18)
[2023-12-24] MEDS: DOCUSATE SODIUM 100 MG CAPSULE PO (09:19)
[2023-12-24] MEDS: polyethylene glycoL 3350 17 GM POWD.PACK PO (09:19)
[2023-12-24] MEDS: FLUTICASONE PROPIONATE 0.05% NA SPR 16 GM BTL (*BKC) 1 SPRAY NASAL (09:19)
[2023-12-24] MEDS: ENOXAPARIN 40 MG/0.4 ML SYRINGE SUB-Q (09:19)
[2023-12-24] MEDS: ACETAMINOPHEN 325 MG TABLET 650 MG PO (09:34)
[2023-12-24 13:10] VITALS: PULSE 68; RESP 18
[2023-12-24 13:20] VITALS: PULSE 69; RESP 18
--- NOTE | 2023-12-24 13:57 | P.DS_ITS ---
DS: Admitting Diagnosis Discharge Date 12/24/23 Admitting Diagnosis fever, chills, weakness DS: Discharge Diagnosis Discharge Diagnosis (1) Sepsis: Code(s): A41.9 - Sepsis, unspecified organism Status: Ruled-out Assessment and Plan: * Likely due to bacterial pneumonia * Blood cultures obtained, currently showing no growth * Transitioned to PO Augmentin, completed azithromycin course (2) Acute hypoxemic respiratory failure: Code(s): J96.01 - Acute respiratory failure with hypoxia Status: Resolved (3) Multifocal pneumonia: Code(s): J18.9 - Pneumonia, unspecified organism Status: Acute Assessment and Plan: * CXR showed opacities in bilateral mid and lower lung zones and favor pneumonia over atelectasis or pulmonary edema. * CT showed bilateral diffuse multifocal pneumonia. * Likely secondary bacterial pneumonia complicating will was initially primary influenza A. * transitioned to PO Augmentin * MRSA cultures negative, d/c vancomycin on 12/21. * Blood cultures showing no growth on preliminary. (4) Influenza: Code(s): J11.1 - Influenza due to unidentified influenza virus with other respiratory manifestations Status: Acute Assessment and Plan: * positive on respiratory panel (5) D-dimer, elevated: Code(s): R79.89 - Other specified abnormal findings of blood chemistry Status: Acute Assessment and Plan: * D-dimer 2.53 * CTA of chest negative for PE (6) Weight loss, unintentional: Code(s): R63.4 - Abnormal weight loss Status: Acute Assessment and Plan: * possibly secondary to acute illness * TSH normal. * Patient would benefit from routine cancer screening such a Cologuard/colonoscopy and yearly evaluation for lung cancer screening * AST/ALT elevated * hep panel positive for hepatitis C, unknown to patient - no history * PCR pending * AB US showed cirrhosis * patient education given, to establish with PCP Alexia Walters and to obtain referral to enrollment management director (7) Continuous tobacco abuse: Code(s): Z72.0 - Tobacco use Status: Chronic Assessment and Plan: * nicotine patch deferred * smoking cessation (8) Constipation: Code(s): K59.00 - Constipation, unspecified Status: Acute Plan DS: Summary Hospital Course Hospital Course: Patient is a 68 YO male admitted with acute hypoxic respiratory failure. He was reporting cough, shortness of breath, fever and chills. Work up in the hospital included Chest x-ray that shown pneumonia, Chest CTA which was negative for PE and shown bilateral diffuse multifocal pneumonia. He tested positive for flu A. His liver enzymes remained mildly elevated, and with known weight loss and elevated alk phos, hepatitis panel was ordered and positive for hep C. Reflex PCR still pending, will f/u outpatient with PCP knows to get referral for enrollment management director. He denies any pain, no ascites present and he is stable on room air. He will d/c home with PCP establish appointment set up for 01/08. Continue full course of Augmentin and nebulizer ordered to pharmacy. BC pending, with NGTD. Status at Discharge Functional status at discharge: independent ambulation Overall status at discharge: patient is progressing back to baseline Time Spent with Patient Time attestation: Total time spent providing and/or coordinating discharge services: Exam Narrative: General: In no acute distress, fairly nourished Head: atraumatic, no encephalopathy Eyes: EOMI, PERRL
--- NOTE | 2023-12-24 13:57 | PM.DS ---
DS: Admitting Diagnosis Discharge Date 12/24/23 Admitting Diagnosis fever, chills, weakness DS: Discharge Diagnosis Discharge Diagnosis (1) Sepsis: Code(s): A41.9 - Sepsis, unspecified organism Status: Ruled-out Assessment and Plan: Likely due to bacterial pneumonia Blood cultures obtained, currently showing no growth Transitioned to PO Augmentin, completed azithromycin course (2) Acute hypoxemic respiratory failure: Code(s): J96.01 - Acute respiratory failure with hypoxia Status: Resolved (3) Multifocal pneumonia: Code(s): J18.9 - Pneumonia, unspecified organism Status: Acute Assessment and Plan: CXR showed opacities in bilateral mid and lower lung zones and favor pneumonia over atelectasis or pulmonary edema. CT showed bilateral diffuse multifocal pneumonia. Likely secondary bacterial pneumonia complicating will was initially primary influenza A. transitioned to PO Augmentin MRSA cultures negative, d/c vancomycin on 12/21. Blood cultures showing no growth on preliminary. (4) Influenza: Code(s): J11.1 - Influenza due to unidentified influenza virus with other respiratory manifestations Status: Acute Assessment and Plan: positive on respiratory panel (5) D-dimer, elevated: Code(s): R79.89 - Other specified abnormal findings of blood chemistry Status: Acute Assessment and Plan: D-dimer 2.53 CTA of chest negative for PE (6) Weight loss, unintentional: Code(s): R63.4 - Abnormal weight loss Status: Acute Assessment and Plan: possibly secondary to acute illness TSH normal. Patient would benefit from routine cancer screening such a Cologuard/colonoscopy and yearly evaluation for lung cancer screening AST/ALT elevated hep panel positive for hepatitis C, unknown to patient - no history PCR pending AB US showed cirrhosis patient education given, to establish with PCP Alexia Walters and to obtain referral to explosives detonator (7) Continuous tobacco abuse: Code(s): Z72.0 - Tobacco use Status: Chronic Assessment and Plan: nicotine patch deferred smoking cessation (8) Constipation: Code(s): K59.00 - Constipation, unspecified Status: Acute Plan DS: Summary Hospital Course Hospital Course: Patient is a 68 YO male admitted with acute hypoxic respiratory failure. He was reporting cough, shortness of breath, fever and chills. Work up in the hospital included Chest x-ray that shown pneumonia, Chest CTA which was negative for PE and shown bilateral diffuse multifocal pneumonia. He tested positive for flu A. His liver enzymes remained mildly elevated, and with known weight loss and elevated alk phos, hepatitis panel was ordered and positive for hep C. Reflex PCR still pending, will f/u outpatient with PCP knows to get referral for explosives detonator. He denies any pain, no ascites present and he is stable on room air. He will d/c home with PCP establish appointment set up for 01/08. Continue full course of Augmentin and nebulizer ordered to pharmacy. BC pending, with NGTD. Status at Discharge Functional status at discharge: independent ambulation Overall status at discharge: patient is progressing back to baseline Time Spent with Patient Time attestation: Total time spent providing and/or coordinating discharge services: Exam Narrative: General: In no acute distress, fairly nourished Head: atraumatic, no encephalopathy Eyes: EOMI, PERRLA ENT: moist mucous membranes Neck: supple Cardiac: RRR, Normal S1 and S2. Respiratory: Mild wheezing noted bilaterally Gastrointestinal: soft, non-distended, non-tender, normoactive bowel sounds. Extremities: moves all extremities well, no edema. Skin: clean, dry, intact. No wounds or lesions. Neuro: Alert and oriented x4, cranial nerves intact, no neuro deficits. Psych: normal mood, normal affect DS: Data Data Completed and Pendi
[2023-12-26 18:06] LABS: Hepatitis C RNA, Quant PCR 3220000 IU/mL
--- NOTE | 2024-01-01 15:05 | PC.NURSE ---
HCV RNa PCr is [id number]. Faaxed results to Mahnaz Walters NP.
== END 2023-12-24 15:00 | disposition home or self-care (01) | DRG 193 ==
LOC: ANHED 18:57 → ANH2MED 12-21 13:55
PROVIDERS: Internal Medicine; Nurse Practitioner Acute Care; Admitting Provider Family Medicine; Emergency Provider Emergency Medicine; PCP Nurse Practitioner Family; Visit Provider Nurse Practitioner
DX: J11.00 Influenza due to unidentified influenza virus with unspecified type of pneumonia (principal); J96.01 Acute respiratory failure with hypoxia; Z23 Encounter for immunization; Z20.822 Contact with and (suspected) exposure to COVID-19; K59.00 Constipation, unspecified; R63.4 Abnormal weight loss; R79.89 Other specified abnormal findings of blood chemistry; Z86.16 Personal history of COVID-19; Z87.891 Personal history of nicotine dependence
CPT/HCPCS: 36415; 71046; 71275; 76705; 80048; 80053; 80074; 81001; 83605; 84443; 85025; 85055; 85380; 85610; 85730; 86140; 87040; 87522; 87637; 87641; 93005; 94640; 96365; 96375; 99291; A9270; J0456; J0696; J1650; J3370; J7512; Q9967